=== PATIENT | female | born 1960 | race Asian ===

== ENCOUNTER 2018-09-24 05:41 | Inpatient (IN) | payer BC, OTHER ==
[2018-09-15 13:46] LABS: HEMATOCRIT 37.1 % (37.0-47.0); HEMOGLOBIN 11.9 gm/dL (12.0-15.0); MCH 27.6 pg (26.0-34.0); MCV 86.2 fL (80.0-100.0); RBC 4.31 mil/uL (4.20-5.00); RDW 21.4 % (10.5-14.5); URINE BILIRUBIN NEGATIVE (Negative); URINE BLOOD NEGATIVE (Negative); URINE CLARITY CLEAR; URINE COLOR YELLOW; URINE GLUCOSE-RANDOM* NEGATIVE (Negative); URINE KETONES NEGATIVE (Negative); URINE NITRITE-REFLEX NEGATIVE (Negative); URINE PROTEIN (DIPSTICK) NEGATIVE (Negative); URINE SPECIFIC GRAVITY 1.015 (1.005-1.035); URINE UROBILINOGEN 0.2 E.U./dl (0.2-1.0); WBC 5.1 thou/uL (4.0-11.0)
[2018-09-15 13:47] LABS: URINE LEUKOCYTES-REFLEX 3+ (Negative)
[2018-09-15 13:53] LABS: ALBUMIN 3.9 g/dL (3.4-5.0); CALCIUM 8.7 mg/dL (8.5-10.1); CREATININE 0.7 mg/dL (0.6-1.0); POTASSIUM 4.2 mmol/L (3.5-5.1)
[2018-09-15 13:57] LABS: BACTERIA-REFLEX None Seen /HPF (None Seen); CASTS None Seen /LPF (None Seen); CRYSTALS None Seen /LPF (None Seen); SQUAMOUS 4-10 Moderate /LPF (0-3); URINE RBC 0-2 Rare /HPF (0-2)
[2018-09-15 13:58] LABS: PROTIME 10.7 Seconds (9.3-11.4)
--- NOTE | 2018-09-16 12:51 | EKG ---
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 : 1960 Requested By: Norman Art Order Number: [id number] MD: Rigoberto Guillen Measurements Intervals [place] Rate: 73 P: 75 WY: 186 QRS: 23 QRSD: 81 T: 54 QT: 395 QTc: 436 Interpretive Statements Sinus rhythm Normal tracing No previous ECG available for comparison Electronically Signed On 09-16-2018 12:51:22 CDT by Rigoberto Guillen [email or web address] ��������������������������������������������� <ELECTRONICALLY SIGNED> ���������������������������������������� By: Rigoberto Guillen MD, [facility] ��������������������������������������������� 09/16/18 1251 [id number] Rigoberto Guillen MD, FACC /EPI
[~2018-09-24] VITALS: Ht 162.6 cm; Wt 52.6 kg
--- NOTE | ~2018-09-24 | O ---
[facility] [place] [address] OPERATIVE REPORT Name: EDEN JIHAN [facility] AD[facility] IN M.R.#: [id number] Admission: 09/24/18 ������������������ Attend Phys: Norman Art MD Discharge: ������������������ Date of : 62 Report #: [id number] THIS REPORT FOR: //name// CC: Banner Chalo Art DATE OF SERVICE: 09/24/2018 PREOPERATIVE DIAGNOSIS: Right hip arthritis. POSTOPERATIVE DIAGNOSIS: Right hip arthritis. PROCEDURE: Right total hip arthroplasty. SURGEON: Norman Art MD. SERVICE CREW SUPERVISOR: Nilam Schmid PA-C. INDICATIONS FOR SERVICE CREW SUPERVISOR: Throughout the case, extensive retraction and manipulation of the hip was required. 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 ANESTHESIA: LMA. IMPLANTS: [employer] size 54 R3 acetabular cup with 1 acetabular screw, a size 10 high offset Synergy press fit stem and a size 36 -3 Oxinium head. ESTIMATED BLOOD LOSS: 50 mL. COMPLICATIONS: None. SPECIMENS: None. CONDITION UPON LEAVING THE OPERATING ROOM: Stable. INDICATION FOR PROCEDURE: The patient is a 57-year-old female with severe right hip arthritis. She had failed conservative measures for this and after discussion with her, she elected for right total hip arthroplasty. DESCRIPTION OF PROCEDURE: Risks, benefits, alternatives, complications were discussed in detail with the patient including but not limited to risk of anesthesia, risk of damage to nerves, arteries, blood vessels, risk for infection, bleeding, risk for leg length discrepancy, instability and need for reoperation. Informed consent was obtained from the patient. Right hip was appropriately marked in the preoperative holding area. IV Ancef was given for preoperative antibiotics. She was brought to the operating room and placed in supine position on operating room table. LMA anesthesia was induced without [facility] [address] [place] [address] OPERATIVE REPORT [facility]: [facility] ADM IN M.R.#: [id number] Admission: 09/24/18 ������������������ Attend Phys: Norman Art MD Discharge: ������������������ Date of : 62 Report #: [id number] complication. She was then placed in the left lateral decubitus position with the right hip uppermost. Right hip and lower extremity were prepped and draped in normal sterile fashion. Timeout was performed properly identifying the patient and procedure as well as the instrumentation. All in the operating room were in agreement. Standard posterior approach to the hip was made with 10 blade through the skin. Dissection was taken down to the fascia with Bovie cautery and fascia was cleaned off with a Vega elevator. Fresh 10 blade was used to make a fascial incision. This was taken proximally and distally with curved Hirsch scissor. Charnley retractor was placed. Trochanteric bursa was taken down with Bovie cautery. Piriformis tendon was identified, tagged and taken down with Bovie. Short external rotators were also taken down with Bovie cautery. Capsulotomy was made and capsule ends were tagged for later repair. The hip was dislocated. There was extensive arthritic change of the femoral head. Femoral neck cut was made 1 cm proximal to lesser trochanter based on preoperative templating and the femoral head was removed. Deep acetabular retractors were placed and labrum was removed sharply. Pulvinar was removed with Bovie cautery. Acetabulum was then sequentially reamed up to a size 54, at which point, there was excellent bleeding cancellous bone. This was trialed with a size 53 cup and found to have a good fit. A final size 54 R3 acetabular cup was placed and seated. One acetabular screw was placed for backup fixation and polyethylene liner for 36 head was placed. Attention was turned to the femur. This was reamed and broached up to a size 10, at which point, a size 10 broach was stable. This was trialed with a high offset neck and a 36+0 head. Hip was reduced, taken through range of motion, found to be stable, found to be somewhat long on the right compared to left. It was felt we could make up for this with the final implant. Hip was dislocated and broach was removed. A final size 10 high offset Synergy press fit stem was placed. This was trialed then with a 36 -3 trial head. Hip was reduced, taken through range of motion, found to be stable, found to have equal leg lengths. Hip was dislocated one last time and a final size 36 -3 Oxinium head was placed. Hip was reduced, taken through range of motion, found to be stable, found to have equal leg lengths. Hip was thoroughly irrigated with normal saline. Periarticular injection consisting of morphine, ropivacaine, epinephrine and Toradol was placed around the hip joint capsule. A gram of vancomycin was placed deep in the joint. The capsule and piriformis were repaired with 0 FiberWire. Fascia was closed with 0 Vicryl, skin was closed with 2-0 Vicryl, 3-0 Monocryl. Dermabond and a FRANCIS dressing was applied. The patient tolerated this procedure well and went to recovery room under care of anesthesia postoperatively. ��������������������������������������������� ���������������������������������������� By: ��������������������������������������������� 1719 1736 Norman Art MD /nt
[~2018-09-24 05:41] MED LIST: ACTEMRA162 MG/0.9 SUBQ; ARAVA20 MG PO; CBD OIL PO; CENTRUM SILVER1 EAC4 PO; IBUPROFEN 800800 M1 PO; IRON325 PO; OMEPRAZOLE 20 M20 M1 PO; PREDNISONE 5 MG5 MG PO; SULFAZINE500 MG PO
[2018-09-24 14:26] VITALS: BP 122/57
[2018-09-24 18:37] VITALS: BP 138/60
[2018-09-24 21:00] VITALS: BP 138/60
[2018-09-24 22:00] VITALS: BP 109/47
[2018-09-24 23:00] VITALS: BP 109/51
[2018-09-25] VITALS (7 sets, daily range): BP systolic 92–119; BP diastolic 47–68
[2018-09-25 06:27] LABS: HEMATOCRIT 29.4 % (37.0-47.0); HEMOGLOBIN 9.7 gm/dL (12.0-15.0); MCH 28.6 pg (26.0-34.0); MCHC 32.9 g/dL (28.0-37.0); RBC 3.39 mil/uL (4.20-5.00); WBC 6.1 thou/uL (4.0-11.0)
[2018-09-25] MEDS ORDERED: ASPIR 8181 MG PO (10:52)
[2018-09-25] MEDS ORDERED: NEURONTIN 300300 M1 PO (10:52)
[2018-09-26] VITALS: BP 89/52; BP 98/42
[2018-09-26 04:43] VITALS: BP 107/42
[2018-09-26 06:05] LABS: HEMATOCRIT 27.8 % (37.0-47.0); HEMOGLOBIN 9.1 gm/dL (12.0-15.0); MCH 28.6 pg (26.0-34.0); MCHC 32.7 g/dL (28.0-37.0); MCV 87.2 fL (80.0-100.0); RBC 3.19 mil/uL (4.20-5.00); RDW 21.7 % (10.5-14.5); WBC 3.2 thou/uL (4.0-11.0)
[2018-09-26 08:00] VITALS: BP 99/47
[2018-09-26 09:59] VITALS: BP 99/47
== END 2018-09-26 11:00 | disposition home health service (06) | DRG 470 ==
LOC: 4E 05:41 → TBA 05:41 → PRE 06:02 → 4E 18:35 → ENTRNSPT 09-26 10:28 → EDTRNSPTSTS 09-26 10:32 → 4E 09-26 11:00
PROVIDERS: ADMIT Orthopaedic Surgery
PROC: 0SR906A Replacement of Right Hip Joint with Oxidized Zirconium on Polyethylene Synthetic Substitute, Uncemented, Open Approach (ICD-10-PCS; principal; 2018-09-24)
DX: M16.11 Unilateral primary osteoarthritis, right hip (principal); Z79.899 Other long term (current) drug therapy; Z79.82 Long term (current) use of aspirin
CPT/HCPCS: 10783; 50010; 50101; 50382; 50414; 53000; 53078; 53368; 54118; 56524; 56527; 56528; 56530; 57095; 57103; 62110; 62900; 70005

== ENCOUNTER 2018-10-09 15:37 | Emergency (ER) | payer BC, OTHER ==
[~2018-10-09] VITALS: Ht 162.6 cm; Wt 52.6 kg
[~2018-10-09 15:37] MED LIST changes: +ASPIR 8181 MG PO; +NEURONTIN 300300 M1 PO
[2018-10-09 15:57] LABS: URINE BILIRUBIN NEGATIVE (Negative); URINE BLOOD NEGATIVE (Negative); URINE CLARITY CLEAR; URINE COLOR YELLOW; URINE GLUCOSE-RANDOM* NEGATIVE (Negative); URINE KETONES NEGATIVE (Negative); URINE LEUKOCYTES 1+ (Negative); URINE NITRITE NEGATIVE (Negative); URINE PROTEIN (DIPSTICK) NEGATIVE (Negative); URINE UROBILINOGEN 0.2 E.U./dl (0.2-1.0)
[2018-10-09 16:04] LABS: BACTERIA 1-9 Few /HPF (None Seen); CASTS None Seen /LPF (None Seen); CRYSTALS None Seen /LPF (None Seen); SQUAMOUS None Seen /LPF (0-3); URINE RBC None Seen /HPF (0-2); URINE WBC 6-15 Few /HPF (0-5)
[2018-10-09 17:00] LABS: ABSOLUTE NEUTROPHILS 3.1 thou/uL (1.4-8.2); BASOPHILS 1.2 % (0.0-2.0); EOSINOPHILS 1.2 % (0.0-3.0); HEMATOCRIT 33.3 % (37.0-47.0); HEMOGLOBIN 10.9 gm/dL (12.0-15.0); LYMPHOCYTES 16.9 % (24.0-44.0); MCHC 32.6 g/dL (28.0-37.0); MCV 88.9 fL (80.0-100.0); MONOCYTES 10.3 % (1.0-8.0); PLATELET COUNT 267 thou/uL (150-400); POLYS 70.4 % (36.0-66.0); RBC 3.75 mil/uL (4.20-5.00); WBC 4.5 thou/uL (4.0-11.0)
[2018-10-09 17:10] LABS: CREATININE 0.8 mg/dL (0.6-1.0); POTASSIUM 4.7 mmol/L (3.5-5.1)
[2018-10-09 17:13] VITALS: BP 108/42
[2018-10-09] MEDS ORDERED: KEFLEX500 M1 PO (17:13)
[2018-10-09 17:16] LABS: ALBUMIN 3.9 g/dL (3.4-5.0); TOTAL BILIRUBIN 0.4 mg/dL (<0.1-1.0); TOTAL PROTEIN 7.4 g/dL (6.4-8.2)
[2018-10-09 17:45] LABS: ANISOCYTOSIS 2+
== END 2018-10-09 17:32 | disposition home or self-care (01) ==
LOC: ER 15:37
PROVIDERS: Emergency Medicine; Physician Assistant
DX: N39.0 Urinary tract infection, site not specified (principal); K21.9 Gastro-esophageal reflux disease without esophagitis; M06.9 Rheumatoid arthritis, unspecified; Z79.899 Other long term (current) drug therapy; Z79.82 Long term (current) use of aspirin; Z98.890 Other specified postprocedural states

== ENCOUNTER → 2019-02-23 | Outpatient (CLI) | payer BC, OTHER ==
[~2019-02-23] VITALS: Ht 162.6 cm; Wt 54.4 kg
[~2019-02-23] MED LIST changes: +KEFLEX500 M1 PO; +PREDNISONE 2.52.5 M1 PO
== END | disposition home or self-care (01) ==
LOC: GI 01-05 08:02
DX: Z12.11 Encounter for screening for malignant neoplasm of colon (principal); Z86.010 Personal history of colon polyps; K64.8 Other hemorrhoids; K21.9 Gastro-esophageal reflux disease without esophagitis; D64.9 Anemia, unspecified; M10.9 Gout, unspecified; Z98.890 Other specified postprocedural states; Z79.899 Other long term (current) drug therapy; Z96.641 Presence of right artificial hip joint; Z87.19 Personal history of other diseases of the digestive system
CPT/HCPCS: 62110; 62900